=== PATIENT | female | born 1995 | race Caucasian/White ===

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

== ENCOUNTER 2021-04-07 23:41 | Inpatient (IN) | payer MEDICAID, OTHER ==
--- NOTE | 2021-04-08 00:17 | ED ---
Psych HPI - General Chief Complaint: Psychiatric Symptoms Stated Complaint: Mental health Time Seen by Provider: 04/07/21 23:58 Source: patient, RN notes reviewed, old records reviewed Mode of arrival: ambulatory Limitations: no limitations - History of Present Illness Initial Comments: This is a 25-year-old female to the emergency. Patient presents today for evaluation regards to psychiatric illness severe depression and self harming. Patient does self cutting size. History of similar. Denying current drug or alcohol.. Patient is admitted to suicidal MD Complaint: suicidal ideation, feels depressed -: unknown Associated Psychiatric Symptoms: depression, suicidal ideation, racing thoughts History of same: Yes Quality: constant, getting worse Improves With: none Worsens With: none Context: not taking psychiatric medications, significant life stressor Associated Symptoms: denies other symptoms Treatments Prior to Arrival: placed on mental health hold If Self Harm: admits thoughts of self harm - Related Data Home Medications Medication Instructions Recorded Confirmed diphenhydrAMINE ELIXIR [Benadryl 25 mg PO BID PRN 07/13/16 04/08/21 Elixir] Previous Rx's Medication Instructions Recorded Famotidine [Pepcid] 20 mg PO DAILY #4 tablet 07/13/16 predniSONE [Deltasone] 40 mg PO DAILY #4 tab 07/13/16 Allergies Allergy/AdvReac Type Severity Reaction Status Date / Time iodine Allergy Swelling Verified 04/08/21 03:19 shellfish derived [Shellfish] Allergy Anaphylaxis Verified 04/08/21 03:19 Beef Containing Products AdvReac Nausea & Verified 04/08/21 03:19 [Beef] Vomiting & Diarrhea gluten AdvReac Nausea & Verified 04/08/21 03:19 Vomiting & Diarrhea lactose AdvReac Nausea & Verified 04/08/21 03:19 Vomiting & Diarrhea Review of Systems ROS Statement: Those systems with pertinent positive or pertinent negative responses have been documented in the HPI. ROS Other: All systems not noted in ROS Statement are negative. Past Medical History Past Medical History: No Reported History History of Any Multi-Drug Resistant Organisms: None Reported Past Surgical History: No Surgical Hx Reported Past Psychological History: Depression, PTSD Smoking Status: Never smoker Past Alcohol Use History: None Reported Past Drug Use History: None Reported General Exam Limitations: no limitations General appearance: alert, in no apparent distress, anxious Head exam: Present: atraumatic, normocephalic, normal inspection Eye exam: Present: normal appearance, PERRL, EOMI. Absent: scleral icterus, conjunctival injection, periorbital swelling ENT exam: Present: normal exam, mucous membranes moist Neck exam: Present: normal inspection. Absent: tenderness, meningismus, lymphadenopathy Respiratory exam: Present: normal lung sounds bilaterally. Absent: respiratory distress, wheezes, rales, rhonchi, stridor Cardiovascular Exam: Present: normal rhythm, tachycardia, normal heart sounds. Absent: systolic murmur, diastolic murmur, rubs, gallop, clicks GI/Abdominal exam: Present: soft, normal bowel sounds. Absent: distended, tenderness, guarding, rebound, rigid Extremities exam: Present: normal inspection, full ROM, normal capillary refill. Absent: tenderness, pedal edema, joint swelling, calf tenderness Back exam: Present: normal inspection Neurological exam: Present: alert, oriented X3, CN II-XII intact Psychiatric exam: Present: normal affect, normal mood Skin exam: Present: warm, dry, intact, normal color. Absent: rash Course Vital Signs 04/07/21 04/08/21 04/08/21 23:45 01:49 03:20 Temperature 97.5 F L Pulse Rate 125 H 110 H 88 Respiratory 20 18 18 Rate Blood Pressure 156/98 152/87 121/87 O2 Sat by Pulse 95 98 98 Oximetry - Reevaluation(s) Reevaluation #1: 04/08/21 00:42 Medical record is reviewed 04/08/21 00:42 Medical clear for psychiatric evaluation Medical Decision Making - Medical Decision Making 25 female who will be admitted for psychiatric evaluation and treatment - Lab Data Lab Results 04/08/21 04/08/21 04/08/21 Range/Units 02:06 02:06 02:06 Urine Color Urine Appearance (Clear) Urine pH (5.0-8.0) Ur Specific [place] (1.001-1.035) Urine Protein (Negative) Urine Glucose (UA) (Negative) Urine Ketones (Negative) Urine Blood (Negative) Urine Nitrite (Negative) Urine Bilirubin (Negative) Urine Urobilinogen (<2.0) mg/dL Ur Leukocyte Esterase (Negative) Urine HCG, Qual Not Detected (Not Detectd) Urine Opiates Screen Not Detected (NotDetected) Ur Oxycodone Screen Not Detected (NotDetected) Urine Methadone Screen Not Detected (NotDetected) Ur Propoxyphene Screen Not Detected (NotDetected) Ur Barbiturates Screen Not Detected (NotDetected) U Tricyclic Antidepress Not Detected (NotDetected) Ur Phencyclidine Scrn Not Detected (NotDetected) Ur Amphetamines Screen Not Detected (NotDetected) U Methamphetamines Scrn Not Detected (NotDetected) U Benzodiazepines Scrn Not Detected (NotDetected) Urine Cocaine Screen Not Detected (NotDetected) U Marijuana (THC) Screen Not Detected (NotDetected) Coronavirus (PCR) Not Detected (Not Detectd) 04/08/21 Range/Units 02:06 Urine Color Yellow Urine Appearance Clear (Clear) Urine pH 5.5 (5.0-8.0) Ur Specific [place] 1.023 (1.001-1.035) Urine Protein Negative (Negative) Urine Glucose (UA) Negative (Negative) Urine Ketones Trace H (Negative) Urine Blood Negative (Negative) Urine Nitrite Negative (Negative) Urine Bilirubin Negative (Negative) Urine Urobilinogen <2.0 (<2.0) mg/dL Ur Leukocyte Esterase Negative (Negative) Urine HCG, Qual (Not Detectd) Urine Opiates Screen (NotDetected) Ur Oxycodone Screen (NotDetected) Urine Methadone Screen (NotDetected) Ur Propoxyphene Screen (NotDetected) Ur Barbiturates Screen (NotDetected) U Tricyclic Antidepress (NotDetected) Ur Phencyclidine Scrn (NotDetected) Ur Amphetamines Screen (NotDetected) U Methamphetamines Scrn (NotDetected) U Benzodiazepines Scrn (NotDetected) Urine Cocaine Screen (NotDetected) U Marijuana (THC) Screen (NotDetected) Coronavirus (PCR) (Not Detectd) Disposition Clinical Impression: Acute psychosis, Acute anxiety, Depression, Suicidal ideation Disposition: TRANSFER TO PSYCH HOSP/UNIT Condition: Fair Is patient prescribed a controlled substance at d/c from ED?: No
[2021-04-08 02:44] LABS: Amphetamine Screen,Urine Not Detected (NotDetected); Barbiturate Screen,Urine Not Detected (NotDetected); Benzodiazepines Screen,Urine Not Detected (NotDetected); Cocaine Screen,Urine Not Detected (NotDetected); Methadone Screen, Urine Not Detected (NotDetected); Opiate Screen,Urine Not Detected (NotDetected); Oxycodone Screen, Urine Not Detected (NotDetected); Phencyclidine Screen,Urine Not Detected (NotDetected); Tricyclic Antidepressant,Urine Not Detected (NotDetected); Urn Cannabinoid Scrn Not Detected (NotDetected)
[2021-04-08] MEDS ORDERED: MAG HYDROX/AL HYDROX/SIMETH 30 ML CUP PO PRN (03:13)
[2021-04-08] MEDS ORDERED: ACETAMINOPHEN TAB 325 MG TAB PO PRN (03:13)
[2021-04-08] MEDS ORDERED: MAGNESIUM HYDROXIDE 2,400 MG/10 ML CUP PO PRN (03:13)
[2021-04-08] MEDS ORDERED: LORazepam 1 MG TAB PO PRN (03:13)
[2021-04-08] MEDS ORDERED: LORazepam 2 MG/ML INJ IM PRN (03:16)
[2021-04-08] MEDS ORDERED: HALOPERIDOL LACTATE 5 MG/ML 1 ML VIAL IM PRN (03:17)
[2021-04-08] MEDS ORDERED: haloperidoL 5 MG TAB PO PRN (03:17)
[2021-04-08 03:33] LABS: Appearance,Urine Clear (Clear); Bilirubin,Urine Negative (Negative); Blood,Urine Negative (Negative); Color,Urine Yellow; Glucose,Urine (UA) Negative (Negative); Ketones,Urine Trace (Negative); Leukocyte Esterase,Urine Negative (Negative); Nitrite,Urine Negative (Negative); PH, Urine 5.5 (5.0-8.0); Protein,Urine Negative (Negative); Specific Gravity,Urine 1.023 (1.001-1.035); Urobilinogen,Urine <2.0 mg/dL (<2.0)
--- NOTE | 2021-04-08 10:42 | P.HP ---
Psychiatric H&P - . H&P Date: 04/08/21 History & Physical: Allergies Allergy/AdvReac Type Severity Reaction Status Date / Time iodine Allergy Swelling Verified 04/08/21 03:19 shellfish derived Shellfish Allergy Anaphylaxis Verified 04/08/21 03:19 Beef Containing Products AdvReac Nausea & Verified 04/08/21 03:19 Beef Vomiting & Diarrhea gluten AdvReac Nausea & Verified 04/08/21 03:19 Vomiting & Diarrhea lactose AdvReac Nausea & Verified 04/08/21 03:19 Vomiting & Diarrhea Vital Signs Temp 97.6 F 04/08/21 03:40 Pulse 81 04/08/21 03:40 Resp 15 04/08/21 03:40 BP 122/73 04/08/21 03:40 Pulse Ox 97 04/08/21 03:40 Intake & Output 04/07/21 04/08/21 04/08/21 18:59 06:59 18:59 Weight 99.478 kg Laboratory Last Values Urine Color Yellow 04/08/21 02:06 Urine Appearance Clear (Clear) 04/08/21 02:06 Urine pH 5.5 (5.0-8.0) 04/08/21 02:06 Ur Specific [place] 1.023 (1.001-1.035) 04/08/21 02:06 Urine Protein Negative (Negative) 04/08/21 02:06 Urine Glucose (UA) Negative (Negative) 04/08/21 02:06 Urine Ketones Trace (Negative) H 04/08/21 02:06 Urine Blood Negative (Negative) 04/08/21 02:06 Urine Nitrite Negative (Negative) 04/08/21 02:06 Urine Bilirubin Negative (Negative) 04/08/21 02:06 Urine Urobilinogen <2.0 mg/dL (<2.0) 04/08/21 02:06 Ur Leukocyte Esterase Negative (Negative) 04/08/21 02:06 Urine HCG, Qual Not Detected (Not Detectd) 04/08/21 02:06 Urine Opiates Screen Not Detected (NotDetected) 04/08/21 02:06 Ur Oxycodone Screen Not Detected (NotDetected) 04/08/21 02:06 Urine Methadone Screen Not Detected (NotDetected) 04/08/21 02:06 Ur Propoxyphene Screen Not Detected (NotDetected) 04/08/21 02:06 Ur Barbiturates Screen Not Detected (NotDetected) 04/08/21 02:06 U Tricyclic Antidepress Not Detected (NotDetected) 04/08/21 02:06 Ur Phencyclidine Scrn Not Detected (NotDetected) 04/08/21 02:06 Ur Amphetamines Screen Not Detected (NotDetected) 04/08/21 02:06 U Methamphetamines Scrn Not Detected (NotDetected) 04/08/21 02:06 U Benzodiazepines Scrn Not Detected (NotDetected) 04/08/21 02:06 Urine Cocaine Screen Not Detected (NotDetected) 04/08/21 02:06 U Marijuana (THC) Screen Not Detected (NotDetected) 04/08/21 02:06 Coronavirus (PCR) Not Detected (Not Detectd) 04/08/21 02:06 04/08/21 10:33 IDENTIFYING DATA: Patient is a 25-year-old female who currently lives in a house with 3 other roommates. She is currently undergoing separation with her . She does not have any kids. 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 HPI: Patient presented to the hospital initially complaining of depression and suicidal thoughts. Patient was admitted voluntarily to the mental health unit for evaluation and treatment. Patient was agreeable to speak to database report writer in the office today and appeared to be depressed and had a constricted affect. She appeared to have poor hygiene and grooming. She was endorsing depression and anxiety which have been increasing over the past several months. She states that she was first diagnosed with depression 8 years ago and began taking medications. She listed off several different medications she's been on however states the Zoloft has helped her the most. She states that she's been off Zoloft for about 2 months now. She states that she recently started cutting herself and her thighs. She states that she's been feeling overwhelmed with her stressors. She claims that she is going through a divorce at this time and recently moved to [place] again due to her new job. She states that she feels the she has a plan to overdose on medications and is continuing to endorse passive suicidal thoughts. She states that "I will do it because of my nephews and nieces they're really close to me". She states that she moved here from [facility] where she used to follow up over there with a counselor and a therapist. She states that she does have episodes of mood swings and possible manic history and episodes where she has a lot of energy and doesn't need to sleep. She states that her sleep at this time is okay and appetite is fair.. Patient denies any suicidal or homicidal ideations intent or plan. At this time patient denies any auditory or visual hallucinations. Patient denies any flight of ideas racing thoughts and increased in goal directed behavior. Patient admits to using no recreational drugs or cigarettes. PAST PSYCHIATRIC HISTORY: Patient states that she has a history of depression and possible bipolar disorder. She states that she has been on several different medications in the past including Zoloft, Wellbutrin, Lexapro, Effexor and Celexa. Patient denies any previous psychiatric hospitalizations. Patient denies any psychiatric outpatient follow-up. She states that she did have one suicide attempt in high school where she attempted to take omeprazole even though she knew she was ALLERGIC to it. PMH:denies ALLERGIES: as per EMR CHEMICAL DEPENDENCY HISTORY: as per HPI FAMILY PSYCHIATRIC/SUBSTANCE USE HISTORY: denies SOCIAL HISTORY: Patient was born and raised in [place]. She states that she also grew up in [place]. She claims that she completed high school and also her bachelor's degree and is currently working on her master's degree in social work. She denies any legal history. She currently lives in a house with 3 roommates is from her . 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 MENTAL STATUS EXAM: General Appearance: Patient appears to be overweight, stated age is alert, directable, and attempts to cooperate. Patient appears to have poor hygiene and grooming. Behavior: Patient is seated without any agitated behavior. Speech: Patient's speech is fluent and nonpressured. Mood/Affect: Patient reports their mood is depressed, affect is congruent and constricted. Suicidality/Homicidality: Patient denies having any homicidal ideation intent or plan. She admits to ongoing passive suicidal thoughts however no intent or plan. Perceptions: Patient denies any visual hallucinations and denies any auditory hallucinations Though content/process: There is no evidence of any delusional thought content and thought process is linear and goal-directed. depressive content Memory and concentration: AOX3, grossly intact for the purposes of this session. Can spell "WORLD" backwards Judgment and insight: poor STRENGTHS/WEAKNESSES: strength is that patient is resilient. Weakness is that patient has poor judgment and is impulsive INTELLECT: average IMPRESSIONS: Depressive disorder unspecified, rule out bipolar depression versus major depressive disorder. Anxiety disorder unspecified PLAN: -Patient is admitted under voluntary status to MHU for stabilization of psychiatric symptoms and safety. Patient has signed adult voluntary form and medication consent and is placed in patient's chart. -Medications : Will start patient on lithium 300 mg daily at bedtime for mood stabilization/mood adjunct. Zoloft 50 mg daily at bedtime for mood/anxiety. melatonin 5 mg qhs prn for insomnia -Ativan and Haldol] PRN for agitation/aggression -Patient was informed of the risks, benefits and side effects of the medication and patient verbally consented to taking the medications. Patient signed med consent form and was placed in chart. -Internal Medicine consult to perform medical evaluation and physical. -NRT - not needed as patient does not smoke -SW on board for discharge planning. Encourage patient to participate in groups to work on coping skills. [] 04/08/21 10:42
[2021-04-08] MEDS: MELATONIN 5 MG TABLET PO PRN (21:04)
[2021-04-08] MEDS: SERTRALINE 50 MG TAB PO SCH (21:04)
[2021-04-08] MEDS: LITHIUM CARBONATE 300 MG CAP PO SCH (21:04)
[2021-04-09 07:09] VITALS: RESP 16
[2021-04-09 07:16] LABS: Basophils % (A) 0 %; Eosinophils # (A) 0.1 k/uL (0-0.7); Eosinophils % (A) 1 %; HCT 43.3 % (34.0-46.0); Lymphocytes # (A) 3.1 k/uL (1.0-4.8); Lymphocytes % (A) 41 %; MCH 30.3 pg (25.0-35.0); MCHC 34.6 g/dL (31.0-37.0); MCV 87.5 fL (80.0-100.0); Mean Platelet Volume 7.3; Monocytes # (A) 0.4 k/uL (0-1.0); Monocytes % (A) 6 %; Neutrophils # (A) 3.8 k/uL (1.3-7.7); Neutrophils % (A) 50 %; Platelet Count 287 k/uL (150-450); RBC 4.95 m/uL (3.80-5.40); RDW 12.6 % (11.5-15.5); WBC 7.6 k/uL (3.8-10.6)
[2021-04-09 07:28] LABS: ALT 35 U/L (4-34); AST 29 U/L (14-36); African American GFR (CKD) >90 (>60 ml/min/1.73 sqM); Alkaline Phosphatase 59 U/L (38-126); Anion Gap 6 mmol/L; Blood Urea Nitrogen 8 mg/dL (7-17); Calcium 9.5 mg/dL (8.4-10.2); Carbon Dioxide 29 mmol/L (22-30); Chloride 105 mmol/L (98-107); Glucose 101 mg/dL (74-99); Non-African American GFR(CKD) >90 (>60 ml/min/1.73 sqM); Potassium 4.5 mmol/L (3.5-5.1); Sodium 140 mmol/L (137-145); Total Bilirubin 0.5 mg/dL (0.2-1.3); Total Protein 6.7 g/dL (6.3-8.2)
--- NOTE | 2021-04-09 11:12 | P.PN ---
Progress Note - Text Progress Note Date: 04/09/21 Interval History: Patient was seen wandering the hallways and was directable and agreeable to alea rahman with publications writer in the office. Patient states that she has been going to groups and claims that she is getting good benefit out of them. She appears to have an improvement in her affect today and appears to be less anxious and less depressed. She states that she does not feel scared anymore being on the unit and feels that she is here for a reason. She states that her mood has improved significantly since yesterday. She states that she was able to sleep throughout the night with the medications and claims that she likes being on the melatonin. She spoke about her outpatient follow-up appointments and the different clinics that she could potentially follow up at. She states that she will likely need to focus on time management and prioritizing once she is discharged and also working on coping skills. She claims to have a fair appetite. She appears to have improvement in her hygiene and grooming. At this time patient denies any suicidal or homical ideations, intent or plan. Patient denies any auditory, visual hallucinations and denies any paranoia or delusions. Patient denies any side effects from the medications and has been compliant with meds. Mental Status Exam: General Appearance: Patient appears to be overweight, stated age is alert, directable, and attempts to cooperate. Patient appears to have improved hygiene and grooming. Behavior: Patient is seated without any agitated behavior. Speech: Patient's speech is fluent and nonpressured. Mood/Affect: Patient reports their mood is improving, affect is congruent Suicidality/Homicidality: Patient denies having any homicidal ideation intent or plan. She is no longer having suicidal thoughts no intent or plan. Perceptions: Patient denies any visual hallucinations and denies any auditory hallucinations Though content/process: There is no evidence of any delusional thought content and thought process is linear and goal-directed. Memory and concentration: AOX3, grossly intact for the purposes of this session. Judgment and insight: Improving Assessment Depressive disorder unspecified, rule out bipolar depression versus major depressive disorder. Anxiety disorder unspecified Plan: -Patient continues to meet criteria for inpatient psychiatric admission for symptom stabilization and safety. Patient has signed adult voluntary form and medication consent and was placed in patient's chart. -Medications: Continue lithium 300 mg daily at bedtime for mood stabilization/mood adjunct. Continue with Zoloft 50 mg daily at bedtime for mood/anxiety. Continue with melatonin 5 mg daily at bedtime when necessary for sleep. -When necessary Ativan and Haldol for agitation/aggression. -NRT - not needed as patient does not smoke. -SW on board for discharge planning. Encouraged the patient to participate in milieu. Likely discharge tomorrow back home.
[2021-04-09] MEDS: SERTRALINE 50 MG TAB PO SCH (20:40)
[2021-04-09] MEDS: MELATONIN 5 MG TABLET PO PRN (20:40)
[2021-04-09] MEDS: LITHIUM CARBONATE 300 MG CAP PO SCH (20:40)
--- NOTE | 2021-04-09 22:04 | P.CONS ---
History of Present Illness - Reason for Consult Consult date: 04/09/21 - History of Present Illness The patient is a 25-year-old female with a PMH of psychiatric illnesses who presented to the emergency room with for depression and self harm. The patient was admitted to the mental health unit where she was seen and evaluated. The patient reports that she recently moved into the area and that she was not able to get access to a psychiatrist and thereby had not been taking her medications. She reports dealing with severe feelings of anxiety and depression which led to her cutting herself on her medial thighs. She denied any suicidal ideation. She further denied any additional complaints. Denied tobacco or alcohol use. Denied substance use. Denied chest pain, shortness of breath, fever, chills, cough, nausea, vomiting, abdominal pain, diarrhea. Laboratory evaluation from the emergency room was reviewed. Review of systems: Pertinent positives and negatives as discussed in HPI, a complete review of systems was performed and all other systems are negative. Physical examination: General: non toxic, no distress, appears at stated age, obese Derm: no unusual rashes/lesions no unusual ecchymoses, warm, dry Head: atraumatic, normocephalic, symmetric Eyes: EOMI, no lid lag, anicteric sclera, pupils equal round reactive to light ENT: Nose and ears atraumatic, no thrush, no pharyngeal erythema Neck: No thyromegaly, no cervical lymphadenopathy, trachea midline, supple Mouth: no lip lesion, mucus membranes moist Cardiovascular: S1S2 reg, no murmur, positive posterior tibial pulse bilateral, no edema, capillary refill less than 2 seconds Lungs: CTA bilateral, no rhonchi, no rales , no accessory muscle use Abdominal: soft, nontender to palpation, no guarding, no appreciable organomegaly, normal bowel sounds Ext: no gross muscle atrophy, muscle strength 5 out of 5 in all 4 extremities grossly, no contractures, Neuro: CN II-XI grossly intact, light touch intact all 4 extremities, finger to nose within normal limits, Psych: Alert, oriented, appropriate affect Assessment/plan Depression and self harm -As per psychiatry Thank you for allowing us to participate in the care of this patient. We will follow peripherally. Do not hesitate to contact us with questions. Someone can be reached from the [facility] hospitalist group at all hours of the day at [phone]. Past Medical History Past Medical History: No Reported History History of Any Multi-Drug Resistant Organisms: None Reported Past Surgical History: No Surgical Hx Reported Past Psychological History: Depression, PTSD Smoking Status: Never smoker Past Alcohol Use History: None Reported Past Drug Use History: None Reported - Past Family History Mother Family Medical History: Hypertension Medications and Allergies Home Medications Medication Instructions Recorded Confirmed Type Famotidine [Pepcid] 20 mg PO DAILY #4 tablet 07/13/16 04/08/21 Rx diphenhydrAMINE ELIXIR [Benadryl 25 mg PO BID PRN 07/13/16 04/08/21 History Elixir] predniSONE [Deltasone] 40 mg PO DAILY #4 tab 07/13/16 04/08/21 Rx Allergies Allergy/AdvReac Type Severity Reaction Status Date / Time iodine Allergy Swelling Verified 04/08/21 03:19 shellfish derived [Shellfish] Allergy Anaphylaxis Verified 04/08/21 03:19 Beef Containing Products AdvReac Nausea & Verified 04/08/21 03:19 [Beef] Vomiting & Diarrhea gluten AdvReac Nausea & Verified 04/08/21 03:19 Vomiting & Diarrhea lactose AdvReac Nausea & Verified 04/08/21 03:19 Vomiting & Diarrhea Physical Exam Vitals: Vital Signs Temp Pulse Resp BP 04/09/21 06:50 97.6 F 64 16 97/52 Results CBC & Chem 7: 04/09/21 06:45 04/09/21 06:45 Labs: Abnormal Lab Results - Last 24 Hours (Table) 04/09/21 Range/Units 06:45 Glucose 101 H (74-99) mg/dL ALT 35 H (4-34) U/L
[2021-04-10 06:35] VITALS: BP 116/59; PULSE 62; TEMP 97.5
--- NOTE | 2021-04-10 10:04 | P.DS ---
Providers Date of admission: 04/08/21 03:03 Expected date of discharge: 04/10/21 Attending physician: Donal Hermosillo MD Consults: 04/08/21 03:13 Consult Physician Routine Consulting Provider: Davy Tafoya Consult Reason/Comments: for H & P for Medical Follow Up Do you want consulting provider notified?: Yes Primary care physician: Stated None - Discharge Diagnosis(es) (1) Depressive disorder Current Visit: Yes Status: Acute Priority: High (2) Generalized anxiety disorder Current Visit: Yes Status: Acute Priority: Medium Hospital Course: Admission HPI: Admission note was completed by scientific technical writer "Patient is a 25-year-old female who currently lives in a house with 3 other roommates. She is currently undergoing separation with her . She does not have any kids. 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 Patient presented to the hospital initially complaining of depression and suicidal thoughts. Patient was admitted voluntarily to the mental health unit for evaluation and treatment. Patient was agreeable to speak to scientific technical writer in the office today and appeared to be depressed and had a constricted affect. She appeared to have poor hygiene and grooming. She was endorsing depression and anxiety which have been increasing over the past several months. She states that she was first diagnosed with depression 8 years ago and began taking medications. She listed off several different medications she's been on however states the Zoloft has helped her the most. She states that she's been off Zoloft for about 2 months now. She states that she recently started cutting herself and her thighs. She states that she's been feeling overwhelmed with her stressors. She claims that she is going through a divorce at this time and recently moved to [place] again due to her new job. She states that she feels the she has a plan to overdose on medications and is continuing to endorse passive suicidal thoughts. She states that "I will do it because of my nephews and nieces they're really close to me". She states that she moved here from [facility] where she used to follow up over there with a counselor and a therapist. She states that she does have episodes of mood swings and possible manic history and episodes where she has a lot of energy and doesn't need to sleep. She states that her sleep at this time is okay and appetite is fair. Patient denies any suicidal or homicidal ideations intent or plan. At this time patient denies any auditory or visual hallucinations. Patient denies any flight of ideas racing thoughts and increased in goal directed behavior. Patient admits to using no recreational drugs or cigarettes." Hospital course: Upon admission to the unit patient was directable and agreeable to commence treatment and signed adult voluntary form. Patient got along well with other patients on the unit and followed unit protocol. Patient was compliant with the medications and denied any side effects throughout hospital course. Patient was started on Zoloft 50 mg daily at bedtime for mood/anxiety. Patient was also started on lithium 300 mg daily at bedtime for mood stabilization/mood adjunct. Patient was also started on melatonin 5 mg daily at bedtime for sleep. Patient spoke of her stressors and engaged in therapy both group and individual. Patient was also seen by medical team for history and physical exam. Throughout the course of the hospitalization patient gradually improved with regards to mood, anxiety, sleep and became more future oriented with improved insight and judgment. On the day of discharge patient denied any suicidal or homicidal ideations intent or plan denied any auditory or visual hallucinations. Patient endorsed wanting to live for her health and her future. The patient denied any access to guns or weapons. Patient denied any paranoia and did not endorse any delusions. Patient does not have a significant history of substance abuse however was counseled on abstaining from all substances including alcohol and marijuana. Patient was also counseled on the medications and need for regular compliance and was encouraged to follow-up with their outpatient appointment for mental health and also for primary care. Prior to discharge a family meeting will be arranged by social work professor to answer any questions and ensure safety upon discharge. Mental status exam: General Appearance: Patient appears to be overweight, stated age is alert, pleasant, and cooperative. Patient is in no acute distress and has improved hygiene and grooming Behavior: Patient is calmly seated without any agitated behavior. Speech: Patient's speech is fluent and nonpressured. Mood/Affect: Patient reports their mood is "better", affect is congruent and euthymic. Suicidality/Homicidality: Patient denies having any suicidal or homicidal ideation intent or plan. Perceptions: Patient denies any auditory or visual hallucinations. Though content/process: There is no evidence of any delusional thought content and thought process is linear and goal-directed. more future oriented Memory and concentration: AOX3, grossly intact for the purposes of this session. Can spell "WORLD" backwards correctly. Judgment and insight: improved with guarded prognosis Impression: Depressive disorder unspecified, rule out bipolar disorder depressed versus major depressive disorder Generalized anxiety disorder Plan: -Continue with discharge today as patient has improved and stabilized psychiatrically and is not currently an imminent threat to herself and/or others. -Continue medications: Zoloft 50 mg daily at bedtime for mood/anxiety. [place] 300 mg daily at bedtime for mood stabilization/mood adjunct. Melatonin 5 mg daily at bedtime for insomnia. -Patient was counseled on the need for medication compliance and appropriate follow-up at mental health and also primary care for medical issues. Patient verbalized understanding and agreed. -Social work to arrange for and conduct family meeting to ensure safety upon discharge and answer any questions/concerns. Social work also to arrange for patients follow up appointments for psychiatric care along with follow up with primary care provider. -Patient counseled on abstaining from recreational drugs and marijuana and alcohol. Was informed/educated on the adverse effects on their physical and mental health. Patient verbally agreed and understood. -Patient was instructed to return to the hospital or seek immediate medical care if their psychiatric or medical symptoms do worsen or reoccur. Allergies Allergy/AdvReac Type Severity Reaction Status Date / Time iodine Allergy Swelling Verified 04/08/21 03:19 shellfish derived [Shellfish] Allergy Anaphylaxis Verified 04/08/21 03:19 Beef Containing Products AdvReac Nausea & Verified 04/08/21 03:19 [Beef] Vomiting & Diarrhea gluten AdvReac Nausea & Verified 04/08/21 03:19 Vomiting & Diarrhea lactose AdvReac Nausea & Verified 04/08/21 03:19 Vomiting & Diarrhea Laboratory Results WBC 7.6 k/uL (3.8-10.6) 04/09/21 06:45 RBC 4.95 m/uL (3.80-5.40) 04/09/21 06:45 Hgb 15.0 gm/dL (11.4-16.0) 04/09/21 06:45 Hct 43.3 % (34.0-46.0) 04/09/21 06:45 MCV 87.5 fL (80.0-100.0) 04/09/21 06:45 MCH 30.3 pg (25.0-35.0) 04/09/21 06:45 MCHC 34.6 g/dL (31.0-37.0) 04/09/21 06:45 RDW 12.6 % (11.5-15.5) 04/09/21 06:45 Plt Count 287 k/uL (150-450) 04/09/21 06:45 MPV 7.3 04/09/21 06:45 Neutrophils % 50 % 04/09/21 06:45 Lymphocytes % 41 % 04/09/21 06:45 Monocytes % 6 % 04/09/21 06:45 Eosinophils % 1 % 04/09/21 06:45 Basophils % 0 % 04/09/21 06:45 Neutrophils # 3.8 k/uL (1.3-7.7) 04/09/21 06:45 Lymphocytes # 3.1 k/uL (1.0-4.8) 04/09/21 06:45 Monocytes # 0.4 k/uL (0-1.0) 04/09/21 06:45 Eosinophils # 0.1 k/uL (0-0.7) 04/09/21 06:45 Basophils # 0.0 k/uL (0-0.2) 04/09/21 06:45 Sodium 140 mmol/L (137-145) 04/09/21 06:45 Potassium 4.5 mmol/L (3.5-5.1) 04/09/21 06:45 Chloride 105 mmol/L (98-107) 04/09/21 06:45 Carbon Dioxide 29 mmol/L (22-30) 04/09/21 06:45 Anion Gap 6 mmol/L 04/09/21 06:45 BUN 8 mg/dL (7-17) 04/09/21 06:45 Creatinine 0.67 mg/dL (0.52-1.04) 04/09/21 06:45 Est GFR (CKD-EPI)AfAm >90 (>60 ml/min/1.73 sqM) 04/09/21 06:45 Est GFR (CKD-EPI)NonAf >90 (>60 ml/min/1.73 sqM) 04/09/21 06:45 Glucose 101 mg/dL (74-99) H 04/09/21 06:[address] Glu mg/dL 94 04/09/21 06:45 Hemoglobin A1c 4.9 % (4.0-6.0) 04/09/21 06:45 Calcium 9.5 mg/dL (8.4-10.2) 04/09/21 06:45 Total Bilirubin 0.5 mg/dL (0.2-1.3) 04/09/21 06:45 AST 29 U/L (14-36) 04/09/21 06:45 ALT 35 U/L (4-34) H 04/09/21 06:45 Alkaline Phosphatase 59 U/L (38-126) 04/09/21 06:45 Total Protein 6.7 g/dL (6.3-8.2) 04/09/21 06:45 Albumin 4.0 g/dL (3.5-5.0) 04/09/21 06:45 TSH 0.942 mIU/L (0.465-4.680) 04/09/21 06:45 Urine Color Yellow 04/08/21 02:06 Urine Appearance Clear (Clear) 04/08/21 02:06 Urine pH 5.5 (5.0-8.0) 04/08/21 02:06 Ur Specific [place] 1.023 (1.001-1.035) 04/08/21 02:06 Urine Protein Negative (Negative) 04/08/21 02:06 Urine Glucose (UA) Negative (Negative) 04/08/21 02:06 Urine Ketones Trace (Negative) H 04/08/21 02:06 Urine Blood Negative (Negative) 04/08/21 02:06 Urine Nitrite Negative (Negative) 04/08/21 02:06 Urine Bilirubin Negative (Negative) 04/08/21 02:06 Urine Urobilinogen <2.0 mg/dL (<2.0) 04/08/21 02:06 Ur Leukocyte Esterase Negative (Negative) 04/08/21 02:06 Urine HCG, Qual Not Detected (Not Detectd) 04/08/21 02:06 Urine Opiates Screen Not Detected (NotDetected) 04/08/21 02:06 Ur Oxycodone Screen Not Detected (NotDetected) 04/08/21 02:06 Urine Methadone Screen Not Detected (NotDetected) 04/08/21 02:06 Ur Propoxyphene Screen Not Detected (NotDetected) 04/08/21 02:06 Ur Barbiturates Screen Not Detected (NotDetected) 04/08/21 02:06 U Tricyclic Antidepress Not Detected (NotDetected) 04/08/21 02:06 Ur Phencyclidine Scrn Not Detected (NotDetected) 04/08/21 02:06 Ur Amphetamines Screen Not Detected (NotDetected) 04/08/21 02:06 U Methamphetamines Scrn Not Detected (NotDetected) 04/08/21 02:06 U Benzodiazepines Scrn Not Detected (NotDetected) 04/08/21 02:06 Urine Cocaine Screen Not Detected (NotDetected) 04/08/21 02:06 U Marijuana (THC) Screen Not Detected (NotDetected) 04/08/21 02:06 Coronavirus (PCR) Not Detected (Not Detectd) 04/08/21 02:06 Vital Signs Temp 97.5 F L 04/10/21 06:35 Pulse 62 04/10/21 06:35 Resp 16 04/10/21 06:35 BP 116/59 04/10/21 06:35 Pulse Ox 97 04/10/21 06:35 Patient Condition at Discharge: Stable Plan - Discharge Summary New Discharge Prescriptions: New Melatonin 5 mg PO HS 30 Days tablet [place] Carbonate 300 mg PO HS 30 Days cap Acetaminophen Tab [Tylenol] 650 mg PO Q4HR PRN tab PRN Reason: Pain/Discomfort Sertraline [Zoloft] 50 mg PO HS 30 Days tab Discontinued diphenhydrAMINE ELIXIR [Benadryl Elixir] 25 mg PO BID PRN PRN Reason: Allergy Symptoms Famotidine [Pepcid] 20 mg PO DAILY #4 tablet predniSONE [Deltasone] 40 mg PO DAILY #4 tab Discharge Medication List Acetaminophen Tab [Tylenol] 650 mg PO Q4HR PRN tab 04/10/21 [Rx] [place] Carbonate 300 mg PO HS 30 Days cap 04/10/21 [Rx] Melatonin 5 mg PO HS 30 Days tablet 04/10/21 [Rx] Sertraline [Zoloft] 50 mg PO HS 30 Days tab 04/10/21 [Rx] Follow up Appointment(s)/Referral(s): None,Stated [Primary Care Provider] - 1-2 days Activity/Diet/Wound Care/Special Instructions: Activity and diet as tolerated. Avoid the use of street drugs and alcohol. Take all medications as prescribed. When you are in need of refills on your medications please contact your medical provider and/or outpatient psychiatrist to have this done. Please go to scheduled outpatient appointment for aftercare treatment. If symptoms return or become worse, call the crisis line at and/or go to the nearest emergency room for evaluation. Discharge Disposition: HOME SELF-CARE
== END 2021-04-10 12:00 | disposition home or self-care (01) | DRG 881 ==
LOC: EC 23:41 → 3MHU 04-08 03:03
PROVIDERS: ADMIT Psychiatry & Neurology Psychiatry; ATTEND Psychiatry & Neurology Psychiatry
DX: F32.9 Major depressive disorder, single episode, unspecified (principal); R45.851 Suicidal ideations; Z20.822 Contact with and (suspected) exposure to COVID-19; F41.1 Generalized anxiety disorder; F43.10 Post-traumatic stress disorder, unspecified; G47.00 Insomnia, unspecified; E66.9 Obesity, unspecified; Z68.36 Body mass index [BMI] 36.0-36.9, adult; Z79.52 Long term (current) use of systemic steroids; Z79.899 Other long term (current) drug therapy; Z71.41 Alcohol abuse counseling and surveillance of alcoholic; Z71.51 Drug abuse counseling and surveillance of drug abuser; Z91.011 Allergy to milk products; Z91.013 Allergy to seafood; Z88.8 Allergy status to other drugs, medicaments and biological substances; Z91.018 Allergy to other foods; Z82.49 Family history of ischemic heart disease and other diseases of the circulatory system; Z91.51 Personal history of suicidal behavior
CPT/HCPCS: 80053; 80306; 81003; 81025; 82075; 83036; 84443; 85025; 87635; 99285